=== PATIENT | female | born 1990 | race Caucasian/White ===

== ENCOUNTER 2024-02-14 07:26 | Outpatient (CLI) | payer BC | END 2024-02-14 23:59 | disposition home or self-care (01) | LOC: MRI02 07:26 | PROVIDERS: ATTEND Pediatrics Sports Medicine | DX: M71.21 Synovial cyst of popliteal space [Baker], right knee (principal); M25.461 Effusion, right knee; M25.561 Pain in right knee | CPT/HCPCS: 73721 ==